=== PATIENT | female | born 1935 | race Caucasian/White ===

== ENCOUNTER 2021-04-08 08:30 | Day surgery (SDC) | payer MEDICARE, OTHER ==
[~2021-04-08] VITALS: Ht 162.6 cm; Wt 60.9 kg
[2021-04-08 08:40] VITALS: BP 145/89
[2021-04-08] MEDS ORDERED: MIDAZolam 1 MG/ML 5ML VIAL ONE (08:50)
[2021-04-08] MEDS ORDERED: fentaNYL/PF 50MCG/1 ML 2ML syringe ONE (08:50)
[2021-04-08] MEDS ORDERED: diphenhydrAMINE 50 mg/ml inj ONE (08:50)
[2021-04-08] MEDS ORDERED: METF-900 PO (08:51)
[2021-04-08] MEDS ORDERED: SPIR25TA5 PO (08:52)
[2021-04-08] MEDS ORDERED: FURO-149 PO (08:52)
[2021-04-08] MEDS ORDERED: DABI150C PO (08:53)
[2021-04-08] MEDS ORDERED: ATOR20TA66 PO (08:55)
[2021-04-08] MEDS ORDERED: LAN0.125T PO (08:56)
[2021-04-08] MEDS ORDERED: ESCI5TAB17 PO (08:56)
[2021-04-08] MEDS ORDERED: LOSA50TA64 PO (08:57)
[2021-04-08] MEDS ORDERED: POTA10TA21 PO (08:58)
[2021-04-08] MEDS ORDERED: DILT360T13 PO (08:58)
[2021-04-08] MEDS ORDERED: ESOM40CA54 (08:59)
[2021-04-08] MEDS ORDERED: UMEC1DIS (09:00)
[2021-04-08] MEDS ORDERED: TOLT4CAP PO (09:01)
[2021-04-08 10:07] VITALS: BP 126/86
[2021-04-08 10:17] VITALS: BP 114/76
[2021-04-08 10:27] VITALS: BP 111/66
[2021-04-08 10:37] VITALS: BP 120/71
== END 2021-04-08 11:00 | disposition home or self-care (01) ==
LOC: GI LAB 08:30
PROVIDERS: ATTEND Internal Medicine Gastroenterology
DX: R19.7 Diarrhea, unspecified (principal); K64.8 Other hemorrhoids; K63.89 Other specified diseases of intestine; I48.91 Unspecified atrial fibrillation; Z87.891 Personal history of nicotine dependence; Z72.89 Other problems related to lifestyle; Z79.899 Other long term (current) drug therapy
CPT/HCPCS: 45380; G0500; J1200; J2250; J3010; J7040; Z7512; 88305; 88342; 99152; 99153; A4620